=== PATIENT | female | born 1965 | race Asian ===

== ENCOUNTER 2021-05-18 17:21 | Emergency (ER) | payer SELFPAY ==
[~2021-05-18] VITALS: Ht 172.7 cm; Wt 50.0 kg
[2021-05-18 17:22] VITALS: BP 135/84
== END 2021-05-18 18:54 | disposition home or self-care (01) ==
LOC: ER 17:21
DX: F41.9 Anxiety disorder, unspecified (principal)
CPT/HCPCS: 99283